=== PATIENT | male | born 1955 | race Caucasian/White ===

== ENCOUNTER 2025-05-26 06:43 | Emergency (ER) | payer MEDICARE, SELFPAY ==
[2025-05-26 06:45] VITALS: BP 177/98; PULSE 65; RESP 18; TEMP 36.4; O2SAT 100; BMI 28.0
--- NOTE | 2025-05-26 07:07 | EKG12_ITS ---
Test Reason : Blood Pressure : */* mmHG Vent. Rate : 65 BPM Atrial Rate : 65 BPM P-R Int : 172 ms QRS Dur : 96 ms QT Int : 402 ms P-R-T Axes : 58 53 60 degrees QTcB Int : 418 ms Normal sinus rhythm Baseline wander/artifact Confirmed by Nolberto Cassidy ([id number]), editorial cartoonist BRYON GALLEGOS ([id number]) on 05/28/2025 1:03:54 PM Referred By: Confirmed By: Nolberto Cassidy
--- NOTE | 2025-05-26 07:09 | RAD_ITS ---
PROCEDURE: CHEST PA AND LATERAL 05/26/2025 REASON FOR EXAM: CHEST TIGHTNESS TECHNIQUE: Procedure Code: RADCXR Modality: DX Procedure: CHEST PA AND LATERAL COMPARISON: None. FINDINGS: Chest radiographs demonstrate adequately aerated lungs bilaterally without pleural effusion, pneumothorax, or focal airspace disease. Atheromatous changes of the aorta without cardiomegaly. Mild degenerative changes of the shoulders and spine. RAD/Chest PA and Lateral IMPRESSION: No evidence of acute cardiopulmonary abnormality. Reading Location: [id number]
--- NOTE | 2025-05-26 07:10 | EDS_ITS ---
HPI History of Present Illness Chief Complaint: Chest Other Informant: patient Narrative Narrative: Patient is a 70-year-old male with a history of allergic rhinitis only, presenting with chest tightness and dizziness. - Reports chest tightness began approximately 5 days ago, described as slight and more noticeable when sitting down; located primarily on the right side of the chest without radiation. - Denies associated dyspnea or cough. - This morning, while bending over to put on boots, experienced sudden onset of dizziness described as lightheadedness, which has persisted since. Prior to this when getting up did not have any of the symptoms. Does not feel a sensation of movement or spinning. - Denies nausea, blurry vision, headache, earache, tinnitus, or loss of sensation in arms or legs. - Denies exacerbation of dizziness with head movement, position changes, or standing up. - Reports feeling a step away from syncope. - Denies recent travel. - Reports feeling more fatigued than usual lately. - Denies issues with hydration. - No history of cardiac problems. 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 [facility] Medical History (Updated 05/26/25 @ 09:[address] Dmitriy Cervantes MD) Allergic rhinitis Home Medications ?Medication ?Instructions ?Recorded ?Last Taken ?Type Antihistamine 1 tab PO DAILY allergy 05/2605/26/25 History acetaminophen 325 mg tablet 650 mg PO Q8 pain 05/26/25 05/25/25 History triamcinolone acetonide 55 mcg 1 spray intranasal GE Y 05/26/25 05/25/25 History nasal spray aerosol (24 Hour Nasal Allergy) Allergy/AdvReac Type Severity Reaction Status Date / Time chicken derived AdvReac Mild flu like Verified 05/26/25 06:50 symptoms Social History Smoking Status: Never smoker ROS ROS ED Constitutional Constitutional ED: Denies chills or fever(s) Eyes Eyes: Denies change in vision or diplopia ENT ENT ED: Denies ear pain, rhinorrhea, sore throat or tinnitus Cardiovascular Cardiovascular: Reports chest pain, dizziness, fatigue and lightheadedness; Denies leg edema, orthostatic symptoms, palpitations, racing heartbeat or syncope Respiratory/Chest Respiratory/Chest: Reports chest tightness; Denies cough or dyspnea Gastrointestinal Gastrointestinal: Denies abdominal pain, diarrhea, nausea or vomiting Genitourinary Genitourinary ED: Denies dysuria or hematuria Musculoskeletal Musculoskeletal: Denies back pain or neck pain Integumentary Denies abscess or rash Neurologic Neurologic: Denies headache(s), paresthesias or weakness Psychiatric Psychiatric: Denies anxiety or suicidal thoughts EXAM Physical Exam Const Vital Signs: 05/26/25 06:45 05/26/25 07:20 05/26/25 07:38 Temperature 97.5 F L Temperature Source Oral Pulse Rate 65 Pulse Rate [Lying] 62 Pulse Rate [Sitting (for 1 minute prior to obtaining)] 68 Pulse Rate [Standing (for 1 minute prior to obtaining)] 66 Respiratory Rate 18 Blood Pressure 177/98 H Blood Pressure [Lying] 157/98 H Blood Pressure [Sitting (for 1 minute prior to obtaining)] 162/95 H Blood Pressure [Standing (for 1 minute prior to obtaining)] 140/100 H Blood Pressure Mean 124 Blood Pressure Mean [Lying] 117 Blood Pressure Mean [Sitting (for 1 minute prior to obtaining)] 117 Blood Pressure Mean [Standing (for 1 minute prior to obtaining)] 113 Pulse Ox 100 Oxygen Delivery Method Room Air 05/26/25 07:44 05/26/25 08:00 05/26/25 09:00 Temperature Temperature Source Pulse Rate 59 L 59 L 60 Pulse Rate [Lying] Pulse Rate [Sitting (for 1 minute prior to obtaining)] Pulse Rate [Standing (for 1 minute prior to obtaining)] Respiratory Rate 14 15 16 Blood Pressure 150/100 H 148/92 H 160/96 H Blood Pressure [Lying] Blood Pressure [Sitting (for 1 minute prior to obtaining)] Blood Pressure [Standing (for 1 minute prior to obtaining)] Blood Pressure Mean 116 110 117 Blood Pressure Mean [Lying] Blood Pressure Mean [Sitting (for 1 minute prior to obtaining)] Blood Pressure Mean [Standing (for 1 minute prior to obtaining)] Pulse Ox 98 98 98 Oxygen Delivery Method Positive well nourished and well developed General Appearance ED: well developed and NAD HEENT Reports moist mucous membranes HEENT Narrative: TMs normal bilaterally. normocephalic and atraumatic Eyes PERRL and EOMs intact bilaterally Eyes Narrative: Negative skew test. Normal jolt test, performed outpatient feeling mildly dizzy. Neck full ROM and supple Resp normal respiratory effort and clear to auscultation bilaterally Cardio regular rate, regular rhythm and no murmurs GI non-tender and non-distended Auscultation: normoactive bowel sounds Palpation: soft Back/Spine no CVA tenderness General Back: other FROM Extremity normal to inspection General Extremety ED: Negative for edema, pulses abnormal or tenderness General Extremity: Negative for edema or pulses abnormal Neuro oriented x3, CN's II-XII intact bilaterally and no sensory deficits noted Neuro Narrative: Normal speech. No aphasia. Normal [id number] and [id number] bilaterally. Sensorium / Orientation: awake and alert Motor Exam: strength 5/5 throughout Psych mental status grossly normal Skin no rashes or lesions noted and no wounds Heart Score History: Slightly/Non-Suspicious ECG: Normal Age: >/= 65 years Risk Factors: No Risk Factors Score: 2 MDM MDM MDM Narrative Medical decision making narrative: I considered both presyncope and lightheadedness as causes of his dizziness, as well as vertiginous possibilities, especially given that his orthostatics are negative yet provoke more dizziness when he lies down. Multiple possibilities with regards to his chest discomfort including PE, ACS, musculoskeletal etiologies, esophageal/GI etiologies. I gave him a fluid bolus and observed him while running tests. He felt much better on reexamination, although his blood pressure remains elevated?previously in the 170s, now 160/96. I screened him for pulmonary embolism since he is low risk and does not usually have unilateral chest pain. His D-dimer was abnormal, so we sent him for a CTA of the chest, as well as of the head and neck, given the vertiginous possibility. The CTA of the chest is normal, and the CTA of the head and neck is also normal. On reexamination, he states the dizziness has resolved and he feels better. He has two sequential troponin measurements that are normal, with the first being 11 and the second 10. He states he sees his doctor annually, the last time he checked his blood pressure was last year and it was 127 and his blood pressure is usually good. This is the first time it has been checked since then. I do not think we necessarily need to put him on new blood pressure medication right now but I recommend close outpatient follow-up so that he can have it rechecked by his doctor. Unclear if it is related to the symptoms, or causing or resolved. At this time, I feel he is stable for discharge, having ruled out all dangerous etiologies. I recommend close follow-up with his doctor and continued adequate fluid intake, which he already practices. He is comfortable with this plan. Portions of this note were generated using voice recognition software ([employer]). I have reviewed the contents and every effort has been made to ensure accuracy; however, inadvertent errors in grammar, spelling, punctuation, or word choice may occur, that were not noted before signing the document and should not alter the intended clinical meaning. Lab Data Attestation: I reviewed the patient's lab results. Labs: Laboratory Results - last 24 hr 05/26/25 05/26/25 06:47 09:15 WBC 6.6 RBC 4.95 Hgb 15.6 Hct 47.0 MCV 94.9 H MCH 31.5 MCHC 33.2 RDW Std Deviation 42.5 RDW Coeff of Monique 12.2 Plt Count 249 MPV 9.6 Immature Gran % (Auto) 0.500 Neut % (Auto) 61.1 Lymph % (Auto) 25.3 [place] % (Auto) 10.2 H Eos % (Auto) 2.1 Baso % (Auto) 0.8 Absolute Neuts (auto) 4.1 Absolute Lymphs (auto) 1.68 Nucleated RBC % 0 D-Dimer Quant (PE/DVT) 0.97 H* Sodium 144 Potassium 4.1 Chloride 107 Carbon Dioxide 26.6 Anion Gap 10 BUN 23 H Creatinine 0.99 Estim Creat Clear Calc 72.06 Est GFR (MDRD) Non-Af 82 BUN/Creatinine Ratio 23.2 H Glucose 95 Calcium 10.1 Troponin T High Sens 11 Troponin T Hi Sens 2 Hr 10 Radiography Diagnostic Testing: Clinical Impression(s) from Imaging Studies Chest X-Ray 05/26/25 07:09 IMPRESSION: No evidence of acute cardiopulmonary abnormality. Reading Location: [facility] Chest CTA 05/26/25 07:37 IMPRESSION: No acute abnormality is seen. Reading Location: [facility] Head/Neck CTA 05/26/25 07:37 IMPRESSION: Unremarkable examination. Reading Location: [facility]--1 Rhythm Strip Rhythm Strip: Sinus Rhythm Rate: 65 Ectopy: None EKG Initial EKG: Attestation: I personally reviewed and interpreted this EKG as follows: Interpretation: Sinus Rhythm and No Acute Injury Pattern Comments: Nml axis & intervals; some baseline artifact in some leads but otherwise nml EKG Prior EKG tracings: not available for review Prior: No Prior Discharge Plan Triage Chief Complaint: Chest Other Other Complaint: Dizziness ED Provider: Dmitriy Cervantes Dx/Rx/DC Orders Clinical Impression: Dizziness, nonspecific, Chest pain, unspecified, Blood pressure elevated without history of HTN Instructions: ED Chest Pain, Noncardiac, ED Dizziness, Uncertain Cause, ED Hypertension, To Be Confirmed Prescriptions: No Action Antihistamine tablet 1 tab PO DAILY Patient Comments: pt not sure which antihistamine they are currently taking acetaminophen 325 mg tablet 650 mg PO Q8 Patient Comments: take 2-3 times daily triamcinolone acetonide [24 Hour Nasal Allergy] 55 mcg aerosol,spray 1 spray intranasal DAILY Rx Instructions: administer into each nostril Primary Care Provider: Raul Lawson Referrals: Raul Lawson MD [Primary Care Provider, Family Practice] - As soon as possible Activity Restrictions/Additional Instructions: Drink plenty of fluids, follow-up with your doctor as soon as you are able. Print Language: Nauruan Disposition Disposition: Home, Self Care
[2025-05-26 07:20] LABS: Hematocrit 47.0 % (40-54); Hemoglobin 15.6 g/dL (13.0-16.5); Immature Granulocytes Count 0.030 X10^3/uL (0.0-0.0); Mean Corp Hgb Conc 33.2 g/dL (32-36); Mean Corpuscular Volume 94.9 fL (80-94); Mean Platelet Vol. 9.6 fl (6.2-12.0); NRBC Flagged by Analyzer 0 % (0-5); Platelet Count 249 K/mm3 (150-450); RBC Distribution Width CV 12.2 % (11.6-14.6); RBC Distribution Width SD 42.5 fl (35.1-43.9); Red Blood Count 4.95 M/mm3 (4.6-6.2); White Blood Count 6.6 K/mm3 (4.4-11.0)
[2025-05-26] MEDS: 0.9% Normal Saline (500mL Bag) 500 ML 999 ML IV (07:23)
[2025-05-26 07:36] LABS: D-Dimer Quantitative (DVT/PE) 0.97 FEU/ug/m (0.27-0.49)
--- NOTE | 2025-05-26 07:37 | CT_ITS ---
PROCEDURE: CTA CHEST W/WO CONTRAST 05/26/2025 REASON FOR EXAM: RIGHT CHEST PAIN, ELEVATED D-DIMER TECHNIQUE: Procedure Code: [id number] Modality: CT Procedure: CTA CHEST W/WO CONTRAST Multiplanar Sagittal and Coronal images were obtained. 3D post processing was performed CONTRAST: Isovue-300 VOLUME: 100 mL One or more dose reduction techniques were used (e.g., Automated exposure control, adjustment of the mA and/or kV according to patient size, use of iterative reconstruction technique). RADIATION DOSE SUMMARY: CTDlvol: 26.74 mGy DLP: 868.09 mGycm COMPARISON: Prior chest radiograph done earlier in the day. FINDINGS: Hardware: None Lymph nodes: Unremarkable Heart: The heart is nonenlarged. Mild coronary artery calcification. Thoracic Aorta: No thoracic aortic aneurysm or dissection. Pulmonary Vessels: No evidence of pulmonary embolism. Lungs and Airways: Lungs are clear. No focal lesion is seen. Pleura: Unremarkable Upper Abdomen: Unremarkable Bones: Mild degree of degenerative changes. CT/CTA Chest W/WO Contrast IMPRESSION: No acute abnormality is seen. Reading Location: [place] [id number]
--- NOTE | 2025-05-26 07:37 | CT_ITS ---
PROCEDURE: CTA HEAD AND NECK W/ CONTRAST 05/26/2025 REASON FOR EXAM: SUDDEN ONSET DIZZY, HYPERTENSIVE, ATTN POST CIRC TECHNIQUE: Procedure Code: [id number].HDNCK Modality: CT Procedure: CTA HEAD AND NECK W/ CONTRAST Multiplanar Sagittal and Coronal images were obtained. 3D post processing was performed CONTRAST: Isovue 370 VOLUME: 100 mL One or more dose reduction techniques were used (e.g., Automated exposure control, adjustment of the mA and/or kV according to patient size, use of iterative reconstruction technique). RADIATION DOSE SUMMARY: CTDlvol: 25.36 mGy DLP: 1080.09 mGycm COMPARISON: None FINDINGS: Aortic Arch: Normal size and branching pattern. No significant atherosclerotic plaque. Brachiocephalic and Subclavians: Unremarkable RIGHT Carotid: Right CCA: Unremarkable. Right ICA: Unremarkable. Right ECA: Unremarkable. LEFT Carotid: Left CCA: Unremarkable. Left ICA: Unremarkable. Left ECA: Unremarkable. Vertebrals: Codominant. Arise from the subclavians. Both vertebrals form the basilar. RIGHT Vertebral: Unremarkable. LEFT Vertebral: Unremarkable. Anatomy: [place] anatomy is normal. Aneurysm or avm: No intracranial aneurysms or large vascular malformations are identified. Anterior cerebral arteries: Unremarkable: Middle cerebral arteries: Unremarkable. Basilar artery: Unremarkable. Posterior cerebral arteries: Unremarkable. Other major branches of the posterior circulation: Unremarkable. Major venous structures: Unremarkable. Other findings: Neck: Lungs: Bones: CT/CTA Head AND Neck W/ Contrast IMPRESSION: Unremarkable examination. Reading Location: [place] [id number]
[2025-05-26 07:38] VITALS: BP 140/100; BP 157/98; BP 162/95; PULSE 62; PULSE 66; PULSE 68
[2025-05-26 07:43] LABS: Troponin T High Sensitivity 11 ng/L (<=22)
[2025-05-26 07:44] VITALS: BP 150/100; PULSE 59; RESP 14; O2SAT 98
[2025-05-26 07:45] LABS: Anion Gap 10 (5-15); BUN 23 mg/dL (4-19); BUN/Creat Ratio 23.2 RATIO (10-20); Calcium,Total 10.1 mg/dL (7.6-11.0); Carbon Dioxide 26.6 mmol/L (21.0-32.0); Chloride 107 mmol/L (98-108); Estimated Creatinine Clearance 72.06 ml/min (50-250); Glucose 95 mg/dL (70-99); Potassium 4.1 mmol/L (3.3-5.1)
[2025-05-26 08:00] VITALS: BP 148/92; PULSE 59; RESP 15; O2SAT 98
[2025-05-26 09:00] VITALS: BP 160/96; PULSE 60; RESP 16; O2SAT 98
[2025-05-26 09:44] LABS: Troponin T High Sens 2 HR 10 ng/L (<=22)
[2025-05-26 09:59] VITALS: BP 169/90; PULSE 58; RESP 18; TEMP 36.6; O2SAT 99
== END 2025-05-26 10:09 | disposition home or self-care (01) ==
PROVIDERS: Emergency Provider Emergency Medicine; PCP Family Medicine; Visit Provider Emergency Medicine
DX: R42 Dizziness and giddiness (principal); R07.9 Chest pain, unspecified; J30.9 Allergic rhinitis, unspecified; Z79.899 Other long term (current) drug therapy; R03.0 Elevated blood-pressure reading, without diagnosis of hypertension
CPT/HCPCS: 70496; 70498; 71046; 71275; 80048; 84484; 85025; 85379; 93005; 96360; 99284; Q9967; A4216

== ENCOUNTER → 2025-05-28 | Outpatient (CLI) | payer MEDICARE, SELFPAY ==
[2025-05-28 13:24] LABS: Cholesterol 178 mg/dL (<=200); Low Density Lipoprotein Calc. 96 mg/dL; PSA,Total - Annual Screen 4.00 ng/mL (0.02-4.00); Triglycerides 70 mg/dL; Very Low Density Lipoprotein 14 mg/dL (5-40); Vitamin B12 600 pg/mL (180-914); cholesterol:hdl ratio screen 2.58
== END | disposition home or self-care (01) ==
LOC: MFPLAB 10:14
PROVIDERS: PCP Family Medicine; Visit Provider Family Medicine
DX: Z12.5 Encounter for screening for malignant neoplasm of prostate (principal); R07.89 Other chest pain
CPT/HCPCS: 36415; 80061; 82607; 84153; G0103

== ENCOUNTER → 2025-06-02 | Outpatient (CLI) | payer MEDICARE, SELFPAY ==
[2025-06-02 12:25] LABS: Hematocrit 43.6 % (40-54); Hemoglobin 15.0 g/dL (13.0-16.5); Mean Corp Hgb Conc 34.4 g/dL (32-36); Mean Corpuscular Volume 93.2 fL (80-94); Mean Platelet Vol. 9.4 fl (6.2-12.0); Platelet Count 253 K/mm3 (150-450); RBC Distribution Width CV 12.2 % (11.6-14.6); RBC Distribution Width SD 41.8 fl (35.1-43.9); Red Blood Count 4.68 M/mm3 (4.6-6.2); White Blood Count 6.3 K/mm3 (4.4-11.0)
[2025-06-02 12:48] LABS: AST(SGOT) 21 U/L (<=37); Alanine Aminotransfer ALT/SGPT 9 U/L (<=46); Albumin, Serum 4.3 g/dL (3.4-4.8); Alkaline Phosphatase 59 U/L (40-129); Anion Gap 10 (5-15); BUN 24 mg/dL (4-19); BUN/Creat Ratio 24.2 RATIO (10-20); Calcium,Total 10.4 mg/dL (7.6-11.0); Carbon Dioxide 25.7 mmol/L (21.0-32.0); Chloride 107 mmol/L (98-108); Globulin 2.5 g/dL (2.2-4.2); Glucose 96 mg/dL (70-99); Potassium 4.3 mmol/L (3.3-5.1); Vitamin D,25 Hydroxy 38.7 ng/mL (30-100)
[2025-06-02 19:21] LABS: Color, Urine Yellow (Yellow); Glucose, Dipstick Normal (Normal); Ketone-Dipstick Negative (Negative); Leukocyte Esterase-Dipstick Negative /ul (Negative); Nitrite-Dipstick Negative (Negative); Occult Blood-Urine Negative /ul (Negative); Protein-Dipstick Negative (Negative); Specific Gravity, Urine 1.015 (1.002-1.030); Urine Bilirubin Dipstick Negative (Negative)
[2025-06-02 20:51] LABS: Mucous, Urine 2+ /hpf (<or=2+); Red Blood Cells-Urine 0-5 SEEN /hpf (0-5); Squamous Epithelial Cells - UA 0-5 SEEN /hpf (0-5)
== END | disposition home or self-care (01) ==
PROVIDERS: PCP Family Medicine; Visit Provider Family Medicine
DX: R53.83 Other fatigue (principal); E55.9 Vitamin D deficiency, unspecified
CPT/HCPCS: 36415; 80053; 81001; 82306; 84443; 85027; 85652

== ENCOUNTER → 2025-06-10 | Outpatient (CLI) | payer MEDICARE, SELFPAY ==
--- NOTE | 2025-06-10 17:12 | STRESSREP ---
Stress Test Report Exercise myocardial perfusion stress test. Date Test Performed: 06/10/2025 [70]-year-old [male] with a history of [chest pain]. Stress protocol: Resting EKG demonstrates [normal sinus] rhythm with a rate of [70] bpm. Resting blood pressure is [132/84] mmHg. Baseline EKG showed normal intervals, without evidence of prior infarction or ongoing ischemia. The patient exercised according to the regular Gino protocol for a total duration of [6 minutes 15 seconds] attaining a maximum heart rate of [125] bpm which was [83]% of maximum predicted heart rate; the maximum workload was [7.7] metabolic equivalents. At rest there were no ST or T wave changes noted to suggest ischemia and at peak exercise upsloping ST changes only were noted which did not meet the criteria for ischemia. No clinical angina was noted the test was terminated due to the target heart rate being achieved/fatigue. The peak blood pressure was [184/78] mmHg. Rate-pressure product was [00707]. Myocardial perfusion protocol. [12.0] mCi of technetium 99m sestamibi was injected at rest. The patient exercised according to regular Gino protocol for total duration of 6 minutes 15 seconds and at peak exercise [35.6] mCi of technetium 99m sestamibi was injected. Stress images were obtained. Stress and rest images were reconstructed in comparing the short axis vertical long and horizontal long axis. Gated images were also obtained. Perfusion SPECT analysis: Patient had significant gastrointestinal uptake in the rest images, adjacent to the inferior border of the heart. This was pronounced more in rest imaging, compared to stress imaging. There was a mild intensity, moderate-sized partially reversible defect in the inferior and inferoseptal sewell. This defect is possible secondary to artifact from above, versus ischemia in this territory. Notably, ejection fraction is 61% with concordant wall motion. Gated SPECT analysis: The gated ejection fraction is [61%]%. Conclusion: 1) Partially reversible, mild intensity defect in the inferior and inferoseptal sewell possibly secondary to processing artifact. However, ischemia cannot be ruled out on this examination. 2) Nondiagnostic electrocardiographic treadmill stress test, as patient did not achieve 85% of maximum predicted heart rate
== END | disposition home or self-care (01) ==
PROVIDERS: PCP Family Medicine; Referring Provider Family Medicine; Visit Provider Family Medicine
DX: R07.89 Other chest pain (principal)
CPT/HCPCS: 78452; 93017; A9500; A4216